=== PATIENT | male | born 1980 ===

== ENCOUNTER 2021-01-13 15:04 | Emergency (ER) | payer OTHER ==
[2021-01-13 17:34] LABS: BASOPHIL 0.3 % (0-2); EOSINOPHIL 0 % (0-5); HCT 44.1 % (42.0-52.0); HGB 14.9 g/dl (13.2-18.0); LYMPHOCYTE 11.8 % (15-48); MCH 27.2 pg (25.0-31.0); MCHC 33.8 g/dL (32.0-36.0); MCV 80.6 fL (78.0-100.0); MONOCYTE 13.9 % (0-12); MPV 9.5 fL (6.0-9.5); NEUTROPHIL 73.7 % (41-80); NRBC 0; PLT 203 K/uL (150-400); RBC 5.47 M/uL (4.70-6.00); RDW 12.3 % (11.5-14.0); WBC 9.3 K/uL (4.0-10.5)
[2021-01-13 17:44] LABS: BILIRUBIN - TOTAL 0.5 mg/dL (0.2-1.0); BUN/CREAT RATIO (CALC) 22.3 RATIO; CREATININE 1.03 mg/dL (0.67-1.17); GLOBULIN (CALCULATION) 4.2 g/dL; POTASSIUM 4.9 mmol/L (3.5-5.1); TOTAL PROTEIN 8.2 g/dL (6.4-8.2)
== END 2021-01-13 22:03 | disposition home or self-care (01) ==
LOC: FER 15:04
PROVIDERS: Internal Medicine
DX: U07.1 COVID-19 (principal); J44.9 Chronic obstructive pulmonary disease, unspecified; F17.210 Nicotine dependence, cigarettes, uncomplicated; Z79.899 Other long term (current) drug therapy
CPT/HCPCS: 36415; 71045; 80053; 82550; 85025; J1100; J7030; M0243; Q0244; U0002